=== PATIENT | male | born 1950 | race American Indian/Alaskan Native ===

== ENCOUNTER 2017-05-16 02:20 | Emergency (ER) | payer OTHER ==
[2017-05-16 04:19] LABS: Basophils % (Auto) 0.9 % (0.0-1.8); Eosinophils % (Auto) 1.8 % (0.0-4.3); Hematocrit 40.4 % (35.5-45.6); Mean Corpuscular HGB Conc 32 % (32-34); Mean Corpuscular Volume 76 fl (84-94); Platelet Count 167 K/mm3 (140-440); Red Blood Count 5.33 M/mm3 (3.65-5.03); Red Cell Distribution Width 17.4 % (13.2-15.2); White Blood Count 8.7 K/mm3 (4.5-11.0)
[2017-05-16 04:21] LABS: Mean Corpuscular Hemoglobin 24 pg (28-32)
[2017-05-16 04:33] LABS: Anion Gap 22 mmol/L; Blood Urea Nitrogen 9 mg/dL (9-20); Carbon Dioxide 22 mmol/L (22-30); Chloride 102.8 mmol/L (98-107); Glucose 101 mg/dL (75-100); Potassium 4.5 mmol/L (3.6-5.0); Sodium 142 mmol/L (137-145)
--- NOTE | 2017-05-16 08:24 | XRay Report ---
CHEST TWO VIEWS: 05/16/17 06:53 CLINICAL: Chest pain. COMPARISON: None FINDINGS: Normal heart and pulmonary vasculature. The lungs are normally expanded and clear.The bones and soft tissues are unremarkable. IMPRESSION: Normal chest.
[2017-05-16] MEDS ORDERED: NORCO 5/325 PO ONE (10:40)
--- NOTE | 2017-05-16 10:51 | Emergency Department Report ---
ED General Adult HPI - General Chief complaint: Chest Pain Stated complaint: BP MED REFILL/LT HAND SWELLING/CHEST PAIN Time Seen by Provider: 05/16/17 09:07 Source: patient Mode of arrival: Ambulatory Limitations: No Limitations - History of Present Illness Initial comments: 66-year-old male presents to the emergency department requesting medication refill. He states he has been out of his blood pressure medication and his gout medication for 2 days. He states he began having left-sided chest pain yesterday morning at 8 AM. He describes a nagging pain in his left chest that did not radiate. Pain was constant and spontaneously resolved approximately one hour prior to my examining the patient. He denies associated shortness of breath, dizziness, diaphoresis, nausea, or vomiting. He also states that his left hand has begun swelling and is painful. He states this pain is similar to his previous gout. There are no other complaints. -: Gradual, days(s) (1) Location: chest, left, upper extremity Radiation: non-radiation Severity scale (0 -10): 4 Quality: aching Consistency: constant Improves with: none Worsens with: none Associated Symptoms: denies other symptoms Treatments Prior to Arrival: none - Related Data Previous Rx's Medication Instructions Recorded Last Taken Type HYDROcodone/APAP 5-325 [Banner 1 each PO Q6HR PRN #14 tablet 06/26/14 Unknown Rx 5/325] predniSONE [Deltasone] 60 mg PO QDAY #34 tab 05/27/15 Unknown Rx valACYclovir [Valtrex] 1,000 mg PO TID #21 tablet 05/27/15 Unknown Rx Colchicine [Colcrys] 0.6 mg PO BID #60 tablet 05/16/17 Unknown Rx Indomethacin 75 mg PO BID #30 capsule.er 05/16/17 Unknown Rx niCARdipine [Cardene] 60 mg PO DAILY #60 capsule 05/16/17 Unknown Rx Allergies Allergy/AdvReac Type Severity Reaction Status Date / Time No Known Allergies Allergy Unverified 06/26/14 02:29 ED Review of Systems ROS: Stated complaint: BP MED REFILL/LT HAND SWELLING/CHEST PAIN Other details as noted in HPI Comment: All other systems reviewed and negative Cardiovascular: chest pain Musculoskeletal: other (left hand swelling and pain) ED Past Medical Hx - Past Medical History Previous Medical History?: Yes Hx Hypertension: Yes Hx Arthritis: Yes Additional medical history: gout, Tucker Palsy - Surgical History Past Surgical History?: Yes Additional Surgical History: Right elbow surgery - Family History Family history: no significant - Social History Smoking Status: Never Smoker Substance Use Type: None - Medications Home Medications: Home Medications Medication Instructions Recorded Confirmed Last Taken Type HYDROcodone/APAP 5-325 [Banner 1 each PO Q6HR PRN #14 tablet 06/26/14 05/27/15 Unknown Rx 5/325] predniSONE [Deltasone] 60 mg PO QDAY #34 tab 05/27/15 Unknown Rx valACYclovir [Valtrex] 1,000 mg PO TID #21 tablet 05/27/15 Unknown Rx Colchicine [Colcrys] 0.6 mg PO BID #60 tablet 05/16/17 Unknown Rx Indomethacin 75 mg PO BID #30 capsule.er 05/16/17 Unknown Rx niCARdipine [Cardene] 60 mg PO DAILY #60 capsule 05/16/17 Unknown Rx ED Physical Exam - General Limitations: No Limitations General appearance: alert, in no apparent distress - Head Head exam: Present: atraumatic, normocephalic - Eye Eye exam: Present: normal appearance, PERRL, EOMI - ENT ENT exam: Present: normal exam, normal orophraynx, mucous membranes moist - Neck Neck exam: Present: normal inspection, full ROM. Absent: tenderness - Respiratory Respiratory exam: Present: normal lung sounds bilaterally. Absent: respiratory distress, chest wall tenderness - Cardiovascular Cardiovascular Exam: Present: regular rate, normal rhythm, normal heart sounds - GI/Abdominal GI/Abdominal exam: Present: soft, normal bowel sounds. Absent: distended, tenderness - Extremities Exam Extremities exam: Present: normal inspection, full ROM. Absent: tenderness - Back Exam Back exam: Present: normal inspection, full ROM. Absent: tenderness - Neurological Exam Neurological exam: Present: alert, oriented X3. Absent: motor sensory deficit - Skin Skin exam: Present: warm, dry, intact ED Course Vital Signs 05/16/17 05/16/17 03:46 10:30 Temperature 98.3 F Pulse Rate 89 Respiratory 18 16 Rate Blood Pressure 152/104 O2 Sat by Pulse 100 98 Oximetry ED Medical Decision Making - Lab Data Result diagrams: 05/16/17 03:57 05/16/17 03:57 - EKG Data -: EKG Interpreted by Me EKG shows normal: sinus rhythm, intervals, QRS complexes, ST-T waves Rate: normal - EKG Data When compared to previous EKG there are: no significant change Interpretation: unchanged when compared t (05/27/2015), other (left axis deviation) - Radiology Data Radiology results: report reviewed Chest x-ray shows no acute cardiopulmonary abnormality. - Medical Decision Making Lab and imaging results reviewed and discussed with the patient. Patient has had a nonischemic ECG and 3 negative troponins. Patient is being given a single Banner for his left hand pain. His medications will be refilled and the patient will be discharged home to follow up with his primary care physician. - Differential Diagnosis medication refill, noncardiac chest pain, ACS, gout Critical care attestation.: If time is entered above; I have spent that time in minutes in the direct care of this critically ill patient, excluding procedure time. ED Disposition Clinical Impression: Non-cardiac chest pain Disposition: DC-01 TO HOME OR SELFCARE Is pt being admited?: No Condition: Stable Instructions: Chest Pain (ED) Prescriptions: Colchicine [Colcrys] 0.6 mg PO BID #60 tablet Indomethacin 75 mg PO BID #30 capsule.er niCARdipine [Cardene] 60 mg PO DAILY #60 capsule Referrals: PRIMARY CARE, [Primary Care Provider] - 3-5 Days Time of Disposition: 10:52
[2017-05-16 11:05] VITALS: BP 154/100
== END 2017-05-16 11:04 | disposition home or self-care (01) ==
LOC: ED 02:20
DX: R07.89 Other chest pain (principal); I10 Essential (primary) hypertension; M19.90 Unspecified osteoarthritis, unspecified site
CPT/HCPCS: 36415; 71020; 80048; 84484; 85025; 93005; 93010